=== PATIENT | male | born 1970 | race Caucasian/White ===

== ENCOUNTER 2017-03-13 06:53 | Emergency (ER) | payer OTHER | END 2017-03-13 10:30 | disposition critical access hospital (66) | LOC: ER 06:53 | DX: N17.9 Acute kidney failure, unspecified (principal); N30.01 Acute cystitis with hematuria; I10 Essential (primary) hypertension; R59.0 Localized enlarged lymph nodes; K21.9 Gastro-esophageal reflux disease without esophagitis; Z79.899 Other long term (current) drug therapy | CPT/HCPCS: 36415; 96361; 96365; 96375; J0696; Q9967 ==